=== PATIENT | male | born 1960 | race Caucasian/White ===

== ENCOUNTER 2024-01-07 04:58 | Inpatient (IN) | payer BC, SELFPAY ==
[2024-01-07] VITALS (91 sets, daily range): BP systolic 84–161; BP diastolic 68–109; BMI 28.7
--- NOTE | 2024-01-07 03:49 | ED.CVA ---
History of Present Illness
General
Chief Complaint: CVA/TIA Symptoms
Source: patient and ambulance crew
Exam Limitations: none
Time Seen by Provider: 01/07/24 03:46
Nursing documentation reviewed up to this point in time: agreed with
Onset of Stroke Symptoms
Onset of symptoms known: No
Time pt last seen normal is known: Yes
Date last time pt seen normal: 01/06/24
Time last time pt seen normal: 21:30
History of Present Illness
History of Present Illness:
This is a 63-year-old male who has no significant past medical history who was feeling well upon going to bed last night around 9:30 PM. He does admit to feeling mildly tired last night but otherwise was feeling well. He awoke at 3 AM with noted
moderate left facial droop as well as difficulty speaking. He describes his voice as being slurred and difficulty finding the right words/word searching. While getting ready for the ambulance, bending over to tie his shoes he admits to feeling
somewhat clumsy, difficulty tying his shoes but did not notice significant weakness on one side or the other. He denies headache, denies dizziness or lightheadedness.
He takes no medicines on a daily basis.
No fall.
Past History
Past History
ED Past Medical History: None
Social History
Tobacco: Non-smoker
Alcohol: None
Drug: None
Personal:
Living: with family
Employment: Employed
Family History
Family History: Hypertension (Both mother and father) and CAD (Father)
Phy Exam
Physical Exam
Physical Exam:
GENERAL: 63-year-old gentleman appears his stated age, awake and alert, pleasant, appears in no acute distress. Very mildly slurred speech is noted as well as minimal intermittent hesitation with his words but no definitive word searching.
EYE: pupils equal and reactive. Extraocular muscles intact. Anicteric
NECK: Supple, nontender, no meningismus, no significant adenopathy.
ENT: posterior pharynx is clear, oral mucosa is moist. TM clear b/l, nares patent. Mild to moderate left facial droop. Forehead is spared.
CARDIAC: Regular rate and rhythm. no murmur.
LUNGS: Clear breath sounds bilaterally, no acute respiratory distress, no wheezes/rales/rhonchi
ABDOMEN: Soft, nondistended, without focal tenderness, no r/g, no cvat. normoactive BS.
NEUROLOGICAL: Alert and oriented x3, left facial droop, mildly slurred speech. Motor strength 5/5 bilaterally. Gross sensation is intact.
SKIN: Warm and dry, normal color, skin intact. No rash.
MUSCULOSKELETAL: No C/C/E. peripheral pulses are full and equal b/l. No palpable tenderness.
PSYCH: Normal and appropriate interaction.
Scores
NIH Stroke Score
Level of Consciousness: 0 - Alert
LOC Questions: 0-Answers both correctly
LOC Commands: 0-Performs both correctly
Best Horizontal Gaze: 0-Normal
Visual Myers: 0=Normal, no visual loss
Facial Palsy: 2=Partial paralysis
Motor - Right Arm: 0=No drift 10 seconds
Motor - Left Arm: 0=No drift 10 seconds
Motor - Right Le-No drift 5 seconds
Motor - Left Le-No drift 5 seconds
Limb Ataxia: 0-Absent
Sensation: 0-Normal
Best Language: 0-No aphasia
Dysarthria: 1-Mild slurring
Extinction and Inattention: 0-No abnormality
Total Score:: 3
Thrombolytic Contraindication
Reasons for NON-Tx with Thrombolytics ABSOLUTE Exclusions: Greater than 4.5 hrs from onset of sxs
Course
Orders/Labs/Results
Orders:
Orders
01/07/24 03:48
Electrocardiogram (*1) Urgent
Reason for Study: Other
Other Reason for Exam: Possible Stroke
CT HEAD STROKE ALERT W/o Cont Urgent
Comment:
Reason For Exam: FACIAL DROOP
Bedside Glucose- Treatment ONCE
Cardiac Monitoring- Treatment ONCE
EKG- Treatment ONCE
IV Insert/Care/Rem.- Treatment PRN
Vital Signs As Directed
Frequency: Other
Weight As Directed
Frequency: Once
Comment: ZERO STRETCHER SCALE FOR ACCURATE WEIGHT
O2 Therapy [RESP] Urgent
Titrate/Wean O2 to maintain O2 sat greater than (%): 93
Special Instructions: MAINTAIN CONTINUOUS O2 SATS > OR = 93%
01/07/24 03:51
CT HEAD/NECK ANG STROKE ALERT Urgent
Comment:
Reason For Exam: wake up stroke-left facial droop, slurred speech
01/07/24 03:52
CT Brain Perfusion Urgent
Comment:
Reason For Exam: wake up stroke, left facial droop, slurred speech
Complete Blood Count/With Diff Urgent
Comprehensive Metabolic Panel Urgent
PTT Urgent
Prothrombin Time Urgent
Troponin I Urgent
01/07/24 04:25
Tenecteplase [Tnkase] 24 mg Syringe [Syringe Non-Pump] 0 ml IV NOW
Provider explained risk/benefits to patient &/or caregiver?: Yes
Abnormal Lab Results
01/07/24
03:52
Neutrophils % 34.3 L %
(42.2-75.2)
Lymphocytes % 52.6 H %
(20.5-51.1)
Monocytes % 10.2 H %
(1.7-9.3)
BUN 21 H mg/dl
(9-20)
Glucose 107 H mg/dl
(70-99)
01/07/24 03:52
01/07/24 03:52
Vital Signs
Initial and Last Documented VS:
Initial Vital Signs
Pulse BP
80 161/81
01/07/24 04:15 01/07/24 04:15
Last Documented Vital Signs
Pulse BP
80 161/81
01/07/24 04:15 01/07/24 04:15
MDM/Problems Addressed
Differential Diagnosis Includes:
Concern for acute CVA, wake-up stroke is patient awoke at 3 AM with symptoms. Went to bed at 9:30 PM feeling well.
Overall symptoms appear improved from initial waking but have not resolved. Initial NIH stroke scale of 3.
Will check CT of the head, CTA as well as CT perfusion.
As NIH stroke scale of 3, patient is not a candidate for IAT but potential candidate for TNK.
Blood pressure 160/80.
Stroke alert initiated promptly upon arrival to the ED.
Case discussed with neurology. Awaiting CT results.
*Radiology
Radiology exam reviewed: radiology read reviewed
*Pulse Oximetry
Patient hypoxic: no
*EKG
Interpreted by ED Provider?: Yes
Interpretation: normal
Comparison EKG: no comparison EKG present
Rate: normal
Rhythm: sinus
[place]: normal axis
Interval: normal interval
QRS Pattern: normal QRS
Ischemia: no ischemia
*Residential Solar Sales Consultant Interpretation
Rate: normal
Interpretation: normal
Rhythm: sinus
*Critical Care Note
Total Time (30-74mins, 75-104mins- exclusive of procedures): 30
comment:
Critical care statement: A total of 30 minutes of critical care time was provided for this patient. This includes management of unstable vital signs, evaluation of the patient at bedside, reviewing the patient's pertinent medical records, discussion
with consultants, review of old EKGs and review of pertinent medical records. This time with separate from time utilized to perform the aforementioned documented procedures
Update Note
Update Note:
01/07/[address] is read by radiologist including CT perfusion. CTA is negative. CT perfusion showing frontal lobe ischemia�acute nature. Patient is TNK candidate.
Benefits/risks discussed with patient and . Agreeable to TNK.
ED Attending Note
-
Portions of this chart may have been created with voice recognition software.� Occasional wrong word or��sound alike� substitutions may have occurred due to the inherent limitations of voice recognition software.
Discharge Plan
Departure
Patient Disposition: Admit
Date of Disposition: 01/07/24
Time of Disposition: 04:36
Admit to: ICU
Admit to doctor: Juana
Presentation/result/management discussed w/ accepting MD/DO: Hospitalist
Discharge Problem:
Acute ischemic stroke
Referrals:
Oh Chaudhari MD [Family Provider] -
Discharge Date and Time
Print Language: SLOVAK
[2024-01-07 04:06] LABS: % Basophils 0.7 % (0-2); % Immature Granulocytes 0.2 % (0-0.5); % Lymphocytes 52.6 % (20.5-51.1); % Monocytes 10.2 % (1.7-9.3); % Neutrophils 34.3 % (42.2-75.2); Absolute Eosinophils 0.1 10^3/uL (0-0.7); Absolute Lymphocytes 3.1 10^3/uL (1.2-3.4); Absolute Monocytes 0.6 10^3/uL (0.1-0.6); Hematocrit 43.7 % (39.0-52.0); Hemoglobin 14.9 g/dL (13.0-18.0); Mean Corp Hgb Conc. 34.1 g/dL (33.0-37.0); Mean Corpuscular Hgb 29.9 pg (27.0-31.0); Mean Corpuscular Volume 87.8 fL (80.0-94.0); Mean Platelet Volume 9.2 fL (7.4-10.4); Nucleated Red Blood Cells % 0 % (-); Platelet Count 224 10^3/uL (130-400); Red Blood Cell Count 4.98 10^6/uL (4.70-6.10); Red Cell Dist. Width 12.3 % (11.5-14.5); White Blood Cell Count 5.9 10^3/uL (4.8-10.8)
[2024-01-07 04:10] LABS: INR 0.92; PT 12.7 Sec (11.4-14.6)
[2024-01-07 04:11] LABS: APTT 28.5 Sec (23.4-35.0)
[2024-01-07 04:16] LABS: Glucose - Point of Care 94 mg/dl (70-99)
[2024-01-07 04:22] LABS: ALT (SGPT) 33 U/L (0-50); AST (SGOT) 49 U/L (17-59); Albumin 4.6 g/dl (3.5-5.0); Alkaline Phosphatase 40 U/L (38-126); Blood Urea Nitrogen 21 mg/dl (9-20); Calcium 9.4 mg/dl (8.4-10.2); Carbon Dioxide 25 mmol/L (22-30); Chloride 103 mmol/L (98-107); Glucose 107 mg/dl (70-99); Potassium 4.2 mmol/L (3.5-5.1); Sodium 142 mmol/L (135-145); Total Bilirubin 0.7 mg/dl (0.2-1.3); Total Protein 7.2 g/dl (6.3-8.2); eGFR > 60.00
[2024-01-07] MEDS: TNKASE 4.8 MG IV (04:31)
[2024-01-07 04:32] LABS: Troponin I < 0.012 ng/ml
--- NOTE | 2024-01-07 04:53 | HPS.HSE ---
Family Physician
-
Family Physician: Oh Chaudhari
Chief Complaint
-
Arose with slurred speech
History of Present Illness
This is a 63-year-old male without any known significant past medical history presenting to the hospital with slurred speech and numbness tingling on the left side.
Patient was in the state of health and went to bed feeling well at 9:30 PM. He had arose to use the bathroom at 3 AM and noticed that he was clumsy. He could not rinse his mouth normally and was gagging on the water. When he tried to speak he
word finding difficulty. His spouse noted that his speech was abnormal. She notes a small left-sided facial droop. He was able to walk without difficulty. He denied having any weakness in his upper or lower extremity. He reports fingertip
numbness. He also reported left leg numbness. On arrival in the emergency department he is speech difficulties had improved dramatically. However he still had numbness.
Denies any prior history or for neurological symptoms including possible TIA, syncope or seizures. He denies any history of palpitations lightheadedness or dizziness. He reports family history of CAD in father but otherwise negative.
On in the ED the patient was hypertensive with a blood pressure of 160/80 pulse of 85 and satting at 7% on room air. ECG showed normal normal sinus rhythm at rate of [address] or T wave changes. CBC was unremarkable. Chemistries
BUN/creatinine were also unremarkable. Patient had a CT of the head and a CTA which where read as negative for bleed, thrombosis, dissection or severe stenosis. CT perfusion imaging read by neurologist shows acute stroke and patient received a TNK.
Medical History
Past Medical History
Past Medical History: Reports None
Past Surgical History: Reports Orthopedic (bilateral meniscus surgery)
Social History
Tobacco: Non-smoker
Alcohol: None
Drug: None
Personal:
Living: With Family
Employment: Employed
Family History
Family History: Not pertinent
Allergies / Home Medications
Allergies reflects when Allergies were last updated in [facility].
Home Medications with original date entered in [facility]
Allergy/Medication List:
Allergies
Allergy/AdvReac Type Severity Reaction Status Date / Time
No Known Allergies Allergy Unverified 01/07/24 04:16
NONE
Review of Systems
-
History Source: Patient and Family
Constitutional: Reports No Symptoms
EENT: Reports No Symptoms
Respiratory: Reports No Symptoms
: Reports No Symptoms
Musculoskeletal: Reports No Symptoms
Skin: Reports No Symptoms
Neurological: Reports Numbness and Other (slurred speech)
Endocrine: Reports No Symptoms
Hematologic/Lymphatic: Reports No Symptoms
Psych: Reports No Symptoms
Physical Exam
Vital Signs
Vital Signs
Temp Pulse Resp BP Pulse Ox
97.9 F 76 16 132/86 97
01/07/24 04:23 01/07/24 04:33 01/07/24 04:33 01/07/24 04:33 01/07/24 04:23
Physical Exam
General: Well Developed, Well Nourished, No Apparent Distress and Comfortable
HEENT: NormoCephalic, Anicteric, Moist mucous membranes and Atraumatic
Respiratory: Clear
Cardiac: S1/S2 and Regular Rhythm
Breast: Deferred by me
GI: Soft, Non Tender, Non Distended and Normal Bowel Sounds
Rectal: Deferred by Provider
Genito-urinary: Deferred by me
Musculoskeletal: No Clubbing, No Cyanosis and No Edema
Skin: Warm
Neuro: AO x 3, Cranial Nerves Intact, No Sensory Deficits (mild numbness of right hand/finger tips and R foot) and Other (NIHSS = 2)
Hematologic/Lymphatic: No Lymphadenopathy
Psych: Calm
Laboratory Results
-
01/07/24 03:52
01/07/24 03:52
Laboratory Results
PT 12.7 Sec (11.4-14.6) 01/07/24 03:52
INR 0.92 01/07/24 03:52
APTT 28.5 Sec (23.4-35.0) 01/07/24 03:52
Total Bilirubin 0.7 mg/dl (0.2-1.3) 01/07/24 03:52
AST 49 U/L (17-59) 01/07/24 03:52
ALT 33 U/L (0-50) 01/07/24 03:52
Alkaline Phosphatase 40 U/L (38-126) 01/07/24 03:52
Troponin I < 0.012 ng/ml 01/07/24 03:52
Data Reviewed
-
Ultrasound: Discussed with Physician
Medical Tests (Nuc Med, Echo, EKG etc): Image Personally Visualized and interpreted
Lab Data: Labs Reviewed by me
Old Records: Reviewed
Impression/Plan
-
IMPRESSION:
63-year-old male without known past medical history presents to the emergency department with left facial droop slurred speech and word finding difficulties that was first noticed after waking up at 3 AM. He went to bed feeling normal at 9:30 PM.
NIH stroke score on arrival was 3. CT head and CT angio negative for bleed, dissection or critical stenosis. CT perfusion shows acute stroke and patient received TNK. Currently NIHSS equals 2.
PLAN:
1. CVA s/p TNK
- admit to icu
- no AC/ antiplatelet therapy for now
- speech swallow eval
- IV hydralazine to Keep SBP < 180 but otherwise permissive hypertension
- mri brain, echo in am
- check a1c, lipid profile, esr in am
- neurochecks q 4
- neurology consulted
Code Status - Full Code
--- NOTE | 2024-01-07 05:30 | PTCARENOTE ---
Received pt from ED nurse via bed. NIHSS performed at bedside w/ ED nurse. NIHSS-1 for mild slurring of words. Yamileth coma scale score 15. Pt presents A&Ox3, pupils are equal and reactive to light, and can move all 4 extremities. Pt can also make
needs known. Pt is NSR on tele monitor, has no edema, and +pedal pulses. Pt on RA satting at 97% pulse ox. On auscultation pt lungs sound clear. Pt's abdomen is round w/ active BS. Pt voiding yellow urine in urinal. Pt's skin is C/D/I. Pt denies any
pain.
--- NOTE | 2024-01-07 06:45 | PTCARENOTE ---
Upon reassessment, neuro status unchanged. NIHSS performed w/ ramone RN and was unchanged. NIHSS-1 for mild slurring.
[2024-01-07 07:05] LABS: HDL Cholesterol 58 mg/dl; LDL Cholesterol, Calculated 149 mg/dl; Total Cholesterol 231 mg/dl (50-199); Triglyceride 121 mg/dl (10-149); Very Low Density Lipoprotein 24 mg/dl (0-30)
--- NOTE | 2024-01-07 07:09 | CON.INTV ---
Consultation
Consultation Request
Date/Time Consultation Requested: 01/07/24
Date/Time Consultation Performed: 01/07/24
Performing Provider: Jeremias
Reason for Consultation: CVA
Medical History
-
History of Present Illness:
Patient is a 63-year-old male with no past history presenting to ER w/ slurred speech and numbness tingling on the left side. Patient was in the state of health and went to bed feeling well at 9:30 PM. He had arose to use the bathroom at 3 AM
and noticed that he was clumsy. He could not rinse his mouth normally and was gagging on the water. When he tried to speak he word finding difficulty. Spouse noted small left-sided facial droop. He was able to walk without difficulty. He denied
having any weakness in his upper or lower extremity. Denies any prior history or for neurological symptoms including possible TIA, syncope or seizures.
On in the ED the patient was hypertensive with a blood pressure of 160/80 pulse of 85 and satting at 7% on room air. ECG showed normal normal sinus rhythm at rate of [address] or T wave changes. NIH score of 3. Prelim read of imaging
negative, but CT perfusion imaging read by neurologist shows acute stroke. Patient received TNK.
Past Medical History
Past Medical History: Other (see list below)
Social History
Tobacco: Non-smoker
Alcohol: None
Drug: None
Family History
Family History: Reviewed & Not Pertinent
Allergies / Home Medications
Allergies
Allergy/AdvReac Type Severity Reaction Status Date / Time
No Known Allergies Allergy Unverified 01/07/24 04:16
Review of Systems
-
History Source: Patient
All other systems: Negative unless noted
Vitals / Labs / Diagnostic Testing
Vital Signs
Temp Pulse Resp BP Pulse Ox
98.2 F 78 20 141/75 95
01/07/24 05:51 01/07/24 06:45 01/07/24 06:45 01/07/24 06:45 01/07/24 06:45
Lab Data
01/07/24 06:00
01/07/24 06:00
Laboratory Results
01/07/24 01/07/24
03:52 06:00
PT 12.7 Cancelled
INR 0.92 Cancelled
APTT 28.5 Cancelled
Diagnostic Testing:
Physical Exam
-
HEENT: Normocephalic, Anicteric and Moist Mucous Membranes
Cardiovascular: S1/S2 and Regular Rhythm
Respiratory: Clear and Non-Labored Respirations
GI: Soft, Non Distended and Non Tender
Neurology: Awake, Alert, Oriented and No Motor Deficits
Skin: Warm, Dry and Good Color
General: Comfortable and Other (NAD)
Assessment
-
Patient is a 63-year-old male with no past history presenting to ER w/ slurred speech and numbness tingling on the left side. On in the ED the patient was hypertensive with a blood pressure of 160/80 pulse of 85 and satting at 7% on room air.
ECG showed normal normal sinus rhythm at rate of [address] or T wave changes. NIH score of 3. Prelim read of imaging negative, but CT perfusion imaging read by neurologist shows acute stroke. Patient received TNK.
Acute CVA s/p TNK 01/07/24
Slurred speech
Conditions present MANAGER OF CASE
Knee Replacement
Torn meniscus x 2 s/p 2 arthroscopies
GERD s/p EGD 2012
HLD
Plan
S/p TNK for CVA
Observe overnight following administration, careful watch for signs of bleeding
Follow CBC, neurovascular checks
Neuro eval
Repeat MRI today
Prior cardiac history includes--mild HLD
No history of HTN
No prior h/o lung disease, currently stable on RA
Aspiration precautions
CXR reviewed, no acute findings
Restart diet per protocol
Speech eval
GI ppx if indicated
Creat at baseline, follow UO
Follow daily weights
No history of renal disease
No signs/symptoms suspicious for infectious etiology at this time.
Will observe off antibiotics for now.
DVT ppx held, SCDs
If doing well post MRI, can transfer to [place] [facility] 24 hours of TNK.
Diagnostic Data
Chest X-Ray: 01/07/24-no acute process
CT Scan: Head/H&N/perfusion 01/07/24-no hemorrhage hydrocephalus or herniation, no large vessel occlusion or high-grade stenosis, nondiagnostic
AP 06/23/13- 1. No CT abnormalities identified to explain the patient's symptoms.
2. Degenerative changes at L4 -- 5, producing moderate narrowing of the central canal and left neural foramen.
Echo:
PFT's:
Reports and relevant images were personally reviewed.
-----
Critical care time 75 mins -- this includes review of history, physical exam, medications, hemodynamic/ventilator parameters, laboratory data, imaging and discussion with house staff, pharmacy, respiratory therapy, armored machine operator, and nursing. Prolonged
time reviewing case presentation by resident (See other note).
--- NOTE | 2024-01-07 07:16 | PTCARENOTE ---
pt received from previous rn at bedside- completed nih with offgoing rn- nih 1 for mild slurring. aox3, nsr on monitor, on room air. no complaints at this time. pt educated about plan of care and stroke education provided- verbalized understanding.
ivs c/d/i. all safety precautions in place, call ruelas within reach.
[2024-01-07 07:43] LABS: Erythrocyte Sed Rate 11 mm/hour (0-20)
--- NOTE | 2024-01-07 08:21 | CON.NEURO ---
Neuro Assessment/Plan
Assessment
Abrupt onset of left facial weakness and difficulty with speech as well as apraxia of right hand use
CT perfusion study of the head is suggestive of an acute right frontal ischemic stroke
Plan
check MRI of brain as planned or earlier
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
At 24 hours, start aspirin 81 mg and clopidogrel 75 mg, then at day 21, aspirin alone
start Atorvastatin 80 mg due to LDL elevation
6 weeks after onset of symptoms, patient will require hypercoagulable evaluation especially in light of the patient's father's early myocardial infarction
Provide medical educational materials
Goal of normotension 24 hours after onset of symptoms
Goal of normoglycemia
DVT prophylaxis
Will follow peripherally
Consultation
Order
Date of Consultation: 01/07/24
Requesting Provider: Hospitalists
Reason for Consult: Aphasia
Subjective/Objective
Subjective Data
Date of Service: January 07, 2024
Right handed
Patient wanted in his usual state of medical health until from sleep at 0300 at which time he noticed that he had difficulty with a left facial droop at which time water was falling out of his mouth. Subsequently, the patient spoke to his and
was found to have difficulty with speaking and slurred speech as well as word searching. The patient then presented to this [facility]'s emergency department at which time tenecteplase was provided. Since his presentation, the patient reports having
improvement in his speech however he continues to experience mild hesitancy.
No prior similar events. No known modifying factors. Additionally, the patient did experience at the time of onset right hand apraxia when attempting to tie shoes.
Objective Data
Vital Signs
Temp Pulse Resp BP Pulse Ox
36.8 C 69 20 129/73 95
01/07/24 07:14 01/07/24 08:03 01/07/24 08:03 01/07/24 08:03 01/07/24 08:00
Lab Results
01/07/24 06:00
01/07/24 06:00
PT Cancelled 01/07/24 06:00
INR Cancelled 01/07/24 06:00
APTT Cancelled 01/07/24 06:00
Sodium Cancelled 01/07/24 06:00
Potassium Cancelled 01/07/24 06:00
BUN Cancelled 01/07/24 06:00
Glucose Cancelled 01/07/24 06:00
Calcium Cancelled 01/07/24 06:00
LDL Cholesterol, Calc Cancelled 01/07/24 06:00
Patient Allergies
No Known Allergies Allergy (Unverified 01/07/24 04:16)
CVA Assessment
Onset of Stroke Symptoms
Onset of symptoms known: Yes
Date of onset of symptoms: 01/07/24
Time of onset of symptoms: 03:00
Time pt last seen normal is known: Yes
Date last time pt seen normal: 01/06/24
Time last time pt seen normal: 21:30
NIH Stroke Score
Level of Consciousness: 0 - Alert
LOC Questions: 0-Answers both correctly
LOC Commands: 0-Performs both correctly
Best Horizontal Gaze: 0-Normal
Visual Myers: 0=Normal, no visual loss
Facial Palsy: 0=Normal, symmetrical
Motor - Right Arm: 0=No drift 10 seconds
Motor - Left Arm: 0=No drift 10 seconds
Motor - Right Le-No drift 5 seconds
Motor - Left Le-No drift 5 seconds
Limb Ataxia: 0-Absent
Sensation: 0-Normal
Best Language: 0-No aphasia
Dysarthria: 0-Normal
Extinction and Inattention: 0-No abnormality
Total Score:: 0
Tenecteplase Contraindications
Inclusion and Exclusion criteria reviewed: Yes
IAT Contraindications: NIHSS < 6
Review of Systems
-
History Source: Patient
All other systems: Reviewed and negative
EENT: Negative Blurry Vision or Swallowing Difficulty
Respiratory: Negative Trouble Breathing
Cardiac: Negative Chest Pain
Abdomen/GI: Negative Incontinence of Stool
Genitourinary: Negative Difficulty Voiding
Musculoskeletal: Negative Back Pain or Neck Pain
Neuro: Headache (AM headaches 2x/week); Negative Dizzy
Physical Exam
-
General: No Apparent Distress and Appears Stated Age
Eyes: OU Absent Papilledema, Round OU, [place] Conjunctivae and No Ptosis
HEENT: Anicteric and Moist Mucous Membranes
Neck: Full Range of Motion
Respiratory: No Dyspnea
Cardiac: No JVD
GI: Non-distended
Skin: Unremarkable
Extremities: No Clubbing, No Cyanosis and No Edema
Psych: Intact Judgement/Insight
Extended Neurological Exam
Mood & Affect: Mood Unremarkable and Affect Unremarkable
Attention Span & Concentration: Awake, Alert, Interactive and No Difficulty with 2 Step Request
Memory: Unremarkable
Tremor: Hand Tremor Absent and Head Tremor Absent
Speech: Quality Unremarkable and Quantity Unremarkable
Cranial Nerve II: Left Eye: Pupillary Reactivity Unremarkable, Pupillary Size Unremarkable and Visual Myers Intact
Cranial Nerve II: Right Eye: Pupillary Reactivity Unremarkable, Pupillary Size Unremarkable and Visual Myers Intact
Cranial Nerves III, IV, : Extraocular Movement: Extraocular Movement Full in all Directions
Cranial Nerve VII: Facial Symmetry: Normal Facial Symmetry
Cranial Nerve VIII: Hearing: Unremarkable Hearing to Normal Conversational Volume
Cranial Nerves IX, X: Palate Movement: Palate Elevation Symmetric
Cranial Nerve XI: Shoulder Shrug: Unremarkable
Cranial Nerve XII: Tongue Protusion: Midline
Muscle Strength, Overall: Full Throughout
Muscle Bulk & Tone: Bulk Unremarkable and Tone Unremarkable
Pronator Drift: No Drift in Upper Extremities
Deep Tendon Reflexes: Unremarkable Throughout
Touch Sensation: Unremarkable
Coordination: Hayayo-fakg-crigna Testing Unremarkable
Babinski Sign: Absent Bilaterally
Data Reviewed
-
CT-A: Report Reviewed and Image Reviewed
CT-Perfusion: Report Reviewed and Image Reviewed
CT Head: Report Reviewed
MRI Head: Ordered and Pending
Labs: Report Reviewed
Lipid Profile: Report Reviewed
Reviewed with: Physician and Patient
Old Records: Summarized
Medications
-
Active Medications
Generic Name Dose Route Start Last Admin
Trade Name Freq PRN Reason Stop Dose Admin
Acetaminophen 650 mg 01/07/24 05:33
Acetaminophen 325 Mg Tablet PO 02/04/24 05:32
Q4HPRN PRN
MALONEY, mild pain, or temp >100.4F
Atorvastatin Calcium 80 mg 01/07/24 18:00
Atorvastatin (Lipitor) 80 Mg Tablet PO 02/04/24 17:59
QPM SAWYER
Hydralazine HCl 5 mg 01/07/24 05:33
Hydralazine 20 Mg/Ml Vial IV 02/04/24 05:32
Q4HPRN PRN
BP > 180/105 mmHg
Sodium Chloride 0 flush 01/07/24 06:00
Sodium Chloride 0.9% (Flush) Syringe IV 02/04/24 05:59
PER PROTOCOL SAWYER
Past History
Past History
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
ED Past Surgical History: None
Social History
Tobacco: Non-smoker
Alcohol: None
Drug: None
Personal:
Living: with family
Employment: Employed
Family History
Family History: Hypertension (Both mother and father) and CAD (Father)
[2024-01-07 09:11] LABS: Glycohemoglobin (HgbA1c) 5.5 % (4.0-5.6)
--- NOTE | 2024-01-07 09:17 | PTCARENOTE ---
Discussed plan of care with Dr. Quevedo- pt ok to get oob, and ok to go to mri today. pt oob to bathroom without difficulty. assessment unchanged.
--- NOTE | 2024-01-07 09:26 | W.PN.HOSP.TC ---
Today's Communication/Plan
-
Cardiology consult
Monitor in ICU
Assessment / Plan
Assessment / Plan
Gen-AAOx3, NAD
HEENT-NC, AT, anicteric, clear oral mm
Neck-supple
CV-reg, no M, +S1/S2
Lungs-clear B/L
Abd-soft, NT, ND
Ext-no edema
Musculoskeletal-no cyanosis, clubbing
Skin-warm and dry
Neuro-grossly non-focal
Psych-calm, cooperative
Acute stroke -presentation with left facial droop, dysarthria and word finding difficulties. Symptoms started at 3 AM. Tenecteplase administered in the ER, currently in ICU. Neurology consulted.
CT head without contrast negative for acute disease.
CTA head/neck without large vessel occlusion, stenosis or dissection.
Brain MRI tomorrow. Echocardiogram.
Consult cardiology for Linq device placement. Discussed with neurology.
Neurology plans on starting dual antiplatelet therapy in 24 hours.
Patient on no medications prior to admission. Was told his blood pressure, cholesterol numbers were elevated by PCP in the past. Prediabetes. Does not regularly check blood pressure at home.
LDL 149, HDL 58, total cholesterol 231, triglycerides 121.
Essential hypertension -permissive hypertension for 24 hours.
Full code
Anticipated Discharge: 24 - 48 hours
Subjective/Interval History
-
Date of Service: January 07, 2024
Patient seen and examined. No complaints currently.
Objective Data
-
Labs:
Laboratory Results
01/07/24 01/07/24
03:52 06:00
WBC 5.9 Cancelled
Hgb 14.9 Cancelled
Hct 43.7 Cancelled
Plt Count 224 Cancelled
PT 12.7 Cancelled
INR 0.92 Cancelled
APTT 28.5 Cancelled
Sodium 142 Cancelled
Potassium 4.2 Cancelled
Chloride 103 Cancelled
Carbon Dioxide 25 Cancelled
BUN 21 H Cancelled
Creatinine 0.9 Cancelled
Glucose 107 H Cancelled
Calcium 9.4 Cancelled
Total Bilirubin 0.7
AST 49
ALT 33
Alkaline Phosphatase 40
Vital Signs:
Vital Signs
Temp Pulse Resp BP Pulse Ox
98.2 F 75 20 159/96 95
01/07/24 07:14 01/07/24 09:03 01/07/24 09:03 01/07/24 09:03 01/07/24 08:00
I&O
01/06/24 01/07/24 01/08/24
06:59 06:59 06:59
Output Total 400 / 400
Balance -400 / -400
Review of Systems
-
History Source: Patient
All other systems: Reviewed and negative
[2024-01-07] MEDS: ATIVAN 1 MG PO (10:19)
--- NOTE | 2024-01-07 10:34 | PTCARENOTE ---
stroke packet and education provided to patient- pt able to teach back and verbalized understanding to education.
--- NOTE | 2024-01-07 10:44 | CON.CAR ---
Addendum entered and electronically signed by Kelly Lazar MD 01/07/24 15:41:
I saw and examined the patient.
The Health Information Management Director's note was reviewed and I agree with the note.
Comment: Exam stable with regular rate and rhythm no obvious murmurs. Lungs clear. Alert and appropriate.
CVA treated with TNK. Doing well. He feels back to baseline.
Plan for transesophageal echocardiogram tomorrow discussed at length with patient.
Plan for 2-week rhythm*monitor prior to discharge.
If this is negative would immediately proceed with implantable Linq.
Aggressive risk factor modification.
All questions answered.
Original Note:
Consultation
Consultation Request
Date/Time Consultation Performed: 01/07/24
Requesting Provider: Dr. Cruz
Performing Provider: Massiel Owens PA-C for Dr. Kelly Lazar
Reason for Consultation: SALLIE/monitor
Medical History
-
Chief Complaint: CVA symptoms
History of Present Illness:
Patient is a 63-year-old male without significant past medical history who presented to [facility] with stroke symptoms early this morning. He had felt in his normal state of health upon going to bed last night around 9:30 PM. Around 3:00
this morning he woke up with left facial drooping and slurred speech, with word finding abnormality. He reports he tried to drink some water and choked on it. He also had some difficulty attempting to tie his shoes while waiting for the ambulance.
He denies cardiac history. He reports normally he walks his dogs daily without difficulty. He denies recent chest pain, shortness of breath, palpitations, lightheadedness or dizziness. He is for brain MRI and echocardiogram today. Cardiology
consulted to evaluate patient for SALLIE and cardiac monitoring. He did receive TNK with significant improvement/resolution of symptoms.
PMH:
meniscus surgery
FH of CAD
Past Medical History
Past Medical History: Other (in HPI)
Social History
Tobacco: Non-Smoker
Alcohol: None
Personal:
Living: With Family
Employment: Employed
Family History
Family History: CAD (in father)
Allergies / Home Medications
Allergy/AdvReac Type Severity Reaction Status Date / Time
No Known Allergies Allergy Unverified 01/07/24 04:16
Review of Systems
-
History Source: Patient and Family
All other systems: Negative unless noted
Physical Exam
Vital Signs
Temp Pulse Resp BP Pulse Ox
98.2 F 78 20 140/75 93
01/07/24 07:14 01/07/24 10:33 01/07/24 10:33 01/07/24 10:33 01/07/24 10:00
Lab Results
01/07/24 06:00
01/07/24 06:00
Troponin I < 0.012 ng/ml 01/07/24 03:52
Physical Exam
General: No Apparent Distress and Comfortable
HEENT: Normocephalic, Anicteric and Moist Mucous Membranes
Respiratory: Clear and Non Labored Respirations
Cardiac: S1/S2 and Regular Rhythm
GI: Soft, Non Tender, Non Distended and Normal Bowel Sounds
Musculoskeletal: No Clubbing, No Cyanosis and No Edema
Skin: Warm and Dry
Neuro: AO x 3
Impression / Plan
-
Primary Eyeglass Frame Truer: none prior to admission
Assessment:
Presentation with facial droop, slurred speech
Concern for acute CVA s/p TNK 01/07/24
HTN
HLD
meniscus surgery
FH of CAD
ECHO 01/07/24: pending
Plan:
-Patient presented with symptoms concerning for acute stroke. Status post TNK. Head CT with no acute intracranial abnormality. Brain MRI pending. Neurology following
-For aspirin and Plavix when okay per neurology. hgb 14.9
-In sinus rhythm on review of telemetry, continue to follow
-Echocardiogram pending
-LDL 149. High intensity Lipitor started
-Troponin negative
-follow BP trends. allow permissive HTN for now in setting of presumed CVA
-N.p.o. for SALLIE in a.m. Procedure discussed with patient and at bedside and they are agreeable to proceed
-Will plan for a 4-week rhythm star monitor to be placed tomorrow, and can determine need for linq based on results.
-d/w head bucker
Data Reviewed
-
EKG: Tracing Personally Visualized and interpreted
CT Scan: Report Reviewed by me
Labs: Labs Reviewed by me
Old Records: Reviewed
--- NOTE | 2024-01-07 11:07 | PTCARENOTE ---
pt off floor for mri
--- NOTE | 2024-01-07 11:38 | CM ---
CM following re: discharge planning.
Discussed in Rounds, reviewed pt's chart, met with pt and pt's spouse at bedside.
Pt is a 63 year old male, admitted with primary dx of CVA. Per Rounds meeting, MRI today, PT/OT/ST to evaluate, continue supportive care.
Pt reports he lives with spouse 2SH, 2 steps to enter, has supportive daughter. 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 Pt expressed his desire to return back home at discharge.
PT and OT will evaluate the pt to determine a level of care at discharge.
PCP: Oh Chaudhari
Pharmacy: [facility]
D/C plan: home with anticipated no needs. Spouse to transport at discharge.
CM will follow with discharge plan updates as hospitalization progresses
--- NOTE | 2024-01-07 12:14 | PTCARENOTE ---
pt back from mri at 1150- vitals obtained. assessment unchanged. pt oob to bathroom. no complaints at this time.
--- NOTE | 2024-01-07 13:11 | W.PN.INTV ---
Today's Communication / Plan
Recommendations
*SEE PLAN ABOVE
Assessment
-
ASSESSMENT:
63 yo previously healthy Male with no significant PMHx or PSHx who presented to the ED today (2023), after awakening from sleep with Left-Facial Droop, mild dysarthria and associated numbness and mild weakness of the ipsilateral UE, around
3AM this morning;
Due to RIGHT-Frontal / Sourav-Medial Sub-Acute Ischemic Infarct/TIA, per Brain MRI.
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
Knee Replacement
Torn meniscus x 2 s/p 2 arthroscopies
GERD s/p EGD 2012
HLD
PLAN:
NEURO:
Closely Monitor over next 24hr period following Thrombolytic (Tenecteplase) Administration
Neuro-Vasc Checks Q1hr
Continue close pt monitoring
Cont. to F/U ancillary tests and correlate clinically with current pt condition
RESPI:
Continue to follow Aspiration Precautions
Elevate head of the Bed > 35 Degree Angle
Possible Speech Eval (Swallowing-Test)
CARDIO-VASC:
Cardiology on Board Cont. to follow Recommendations
Continue Full Cardia Work-up / SALLIE Tomorrow
Continue Selq-Nlwy-LKM Therapy (ASA 81mg + Clopidogrel 75mg QD)(Per Protocol)
Continue High-Dose Atorvastatin 80mg QD (Plaque Stabilizing Effect in the setting of Unknown CVA Etiology/Possible Thrombotic Etiology)
F/U Out-Patient for further management and characterization of possible
-Stroke Precipitating Factors
-Hypertensive Urgency Causes
GI:
Restart Regular-Diet (Per Protocol / Following Primary Teams - Recommendations)
GI Ppx (In the Setting of Prev. GERD Hx and/or PPI Use)
RENAL/:
F/U Urine Output
Cont. to follow Creat
Cont. to follow In/Outs
Continue IV Fluid Hydration & Supportive-Care
ID:
No ABX Ppx at this time
Cont. to Monitor for Signs of Infection Development (Temp/
HEMME/ONC:
DVT Pppx With SCD at this time
NO Anti-Coagulation at this time (Currently on Thrombolytic Agent)
ENDOCRINE:
Closely Monitor Glucose Level
F/U Out-pt for further management/Optimization
-----
Critical care time mins -- this includes review of history, physical exam, medications, hemodynamic/ventilator parameters, laboratory data, imaging and discussion with house staff, pharmacy, respiratory therapy, digital sales planner, and nursing.
Subjective Dataa
Subjective Data
Date of Service:
Date of Service: January 07, 2024
Pt was seen and evaluated at the bedside with attending physician.
No complains
Pt stated he feels well and consider his symptoms as completely resolved at this time
Pt was noted to be calm in NAD / AAOx3 / Cooperative
Vitals Stable / No hemodynamically instability
No Sensory or Motor Deficits or Abnormalities noted on Exam
Normal Speech
Pt understand next steps to follow in his plan of care and seems to fully agree
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
Review of Systems
General: Other
Objective Data
Data Reviewed
Vital Signs / I&O / Oxygen:
Vital Signs
Temp Pulse Resp BP Pulse Ox
36.7 C 68 18 118/76 93
01/07/24 12:06 01/07/24 12:33 01/07/24 12:33 01/07/24 12:33 01/07/24 12:00
Intake and Output
01/06/24 01/07/24 01/08/24
06:59 06:59 06:59
Output Total 400 / 400
Balance -400 / -400
SaO2 93
Labs/Micro/Reports
Lab Data
01/07/24 06:00
01/07/24 06:00
Laboratory Results
01/07/24 01/07/24
03:52 06:00
PT 12.7 Cancelled
INR 0.92 Cancelled
APTT 28.5 Cancelled
--- NOTE | 2024-01-07 15:13 | PTOTSP ---
ST Acute Care Evaluation
Pt currently presents with speech, language, and cognitive linguistic skills that are WFL. No skilled ETHYLBENZENE CONVERTER OPERATOR services deemed warranted at this time. Pt expressed occasional difficulty with adequate breath support for speaking at times (even prior to
arrival). ETHYLBENZENE CONVERTER OPERATOR recommended consideration for brief OP ETHYLBENZENE CONVERTER OPERATOR consultation for voice therapy to learn strategies to improve breath support for speech. Pt was receptive to this idea.
Recommendations:
- No skilled ETHYLBENZENE CONVERTER OPERATOR services warranted at this time.
- Consider OP ETHYLBENZENE CONVERTER OPERATOR tx for voice eval/tx if pt desires.
--- NOTE | 2024-01-07 16:15 | PTCARENOTE ---
assessment unchanged. dysarthria improved. pt resting comfortably at this time.
[2024-01-07] MEDS: LIPITOR 80 MG PO (18:09)
--- NOTE | 2024-01-07 19:14 | PTCARENOTE ---
Received pt via handoff. Pt AAOx3, NIH stroke scale completed at bedside with a score of 0, able to FRANCO. NSR, no edema with palpable pulses. 98% on RA, lungs sounds clear throughout. Hypoactive bowel sounds in all 4Q. Pt able to walk to bathroom to
void. Skin CDI. Call ruelas at bedside.
--- NOTE | 2024-01-07 23:41 | PTCARENOTE ---
All systems reassessed, pts NIH score remains a zero, call ruelas at bedside.
[2024-01-08] VITALS (28 sets, daily range): BP systolic 106–133; BP diastolic 67–86; PULSE 58–60; BMI 28.5
[2024-01-08 04:52] LABS: Hematocrit 40.7 % (39.0-52.0); Hemoglobin 14.1 g/dL (13.0-18.0); Mean Corp Hgb Conc. 34.6 g/dL (33.0-37.0); Mean Corpuscular Hgb 30.5 pg (27.0-31.0); Mean Corpuscular Volume 87.9 fL (80.0-94.0); Platelet Count 200 10^3/uL (130-400); Red Blood Cell Count 4.63 10^6/uL (4.70-6.10); Red Cell Dist. Width 12.3 % (11.5-14.5); White Blood Cell Count 4.7 10^3/uL (4.8-10.8)
[2024-01-08 05:00] LABS: Blood Urea Nitrogen 17 mg/dl (9-20); Calcium 9.1 mg/dl (8.4-10.2); Carbon Dioxide 26 mmol/L (22-30); Chloride 102 mmol/L (98-107); Estimated Creatinine Clearance 101 ml/min; Glucose 104 mg/dl (70-99); Magnesium 1.9 mg/dl (1.6-2.3); Potassium 3.8 mmol/L (3.5-5.1); Sodium 140 mmol/L (135-145); eGFR > 60.00
--- NOTE | 2024-01-08 05:04 | DOWNTIME ---
There was a [employer] Client Early Breastfeeding Care Specialist Downtime on 01/08/2024 from 0100 to 01/08/2024 at 0350. Downtime documentation of patient's care, including medication administrations, has been reconciled in the electronic record per guidelines. Refer to the
patient's paper chart under the miscellaneous tab to see printed paper medication records and downtime forms.
--- NOTE | 2024-01-08 05:11 | PTCARENOTE ---
All systems reassessed, pt NIH score remains at 0. Call ruelas at bedside.
--- NOTE | 2024-01-08 07:11 | W.PN.INTV ---
Today's Communication / Plan
Recommendations
Doing well today, MRI reviewed
Underwent SALLIE with PFO, further OP cardiac management
At risk for BLANK, will arrange sleep study f/u as OP
Discharge planning per team
Assessment
-
Patient is a 63-year-old male with no past history presenting to ER w/ slurred speech and numbness tingling on the left side. On in the ED the patient was hypertensive with a blood pressure of 160/80 pulse of 85 and satting at 7% on room air.
ECG showed normal normal sinus rhythm at rate of [address] or T wave changes. NIH score of 3. Prelim read of imaging negative, but CT perfusion imaging read by neurologist shows acute stroke. Patient received TNK.
Acute CVA s/p TNK 01/07/24
Slurred speech
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
Knee Replacement
Torn meniscus x 2 s/p 2 arthroscopies
GERD s/p EGD 2012
HLD
Plan
S/p TNK for CVA
Observe overnight following administration, careful watch for signs of bleeding
Follow CBC, neurovascular checks
Neuro eval
Repeat MRI reviewed below
Prior cardiac history includes--mild HLD
No history of HTN
Follow BP goals
For SALLIE today-PFO noted, will be obtaining OP holter monitoring
Cards OP FU
No prior h/o lung disease, currently stable on RA
Aspiration precautions
CXR reviewed, no acute findings
Likely has sleep apnea, will arrange sleep study testing for patient as OP
Restart diet per protocol, tolerating
Speech eval
GI ppx if indicated
Creat at baseline, follow UO
Follow daily weights
No history of renal disease
No signs/symptoms suspicious for infectious etiology at this time.
Will observe off antibiotics for now.
DVT ppx held, SCDs
Diagnostic Data
Chest X-Ray: 01/07/24-no acute process
CT Scan: Head/H&N/perfusion 01/07/24-no hemorrhage hydrocephalus or herniation, no large vessel occlusion or high-grade stenosis, nondiagnostic
AP 06/23/13- 1. No CT abnormalities identified to explain the patient's symptoms.
2. Degenerative changes at L4 -- 5, producing moderate narrowing of the central canal and left neural foramen.
Brain MRI 01/08/24- As described, there are several focal areas of acute to subacute infarction in the right frontal lobe. No evidence for associated hemorrhage. No evidence of mass effect or midline shift. Mild atrophy. Mild T2 and FLAIR white
matter hyperintensities, commonly seen with aging and usually attributed to small vessel ischemic disease. Paranasal sinus disease as described.
Echo: 01/07/24- 1. Normal left ventricular size and systolic function without regional wall motion abnormalities. Mild concentric left ventricular hypertrophy. Estimated left ventricular ejection fraction is 59% by Short's method. Normal
diastolic function. 2. Normal right ventricular size and systolic function. 3. No significant valvular abnormalities. 4. No pericardial effusion. 5. Mild dilatation of the ascending aorta. No prior echocardiogram available for comparison.
PFT's:
Reports and relevant images were personally reviewed.
-----
Critical care time 45 mins -- this includes review of history, physical exam, medications, hemodynamic/ventilator parameters, laboratory data, imaging and discussion with house staff, pharmacy, respiratory therapy, shipping helper, and nursing. Prolonged
time reviewing case presentation by resident (See other note).
Subjective Dataa
Subjective Data
Date of Service:
Date of Service: January 08, 2024
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
Subjective:
No acute events ON, remains stable on RA
No new complaints
Ready to go home
Objective Data
Data Reviewed
Vital Signs / I&O / Oxygen:
Vital Signs
Temp Pulse Resp BP Pulse Ox
98.6 F 67 18 118/74 89
01/08/24 03:45 01/08/24 06:00 01/08/24 04:33 01/08/24 06:00 01/08/24 06:00
Intake and Output
01/07/24 01/08/24 01/09/24
06:59 06:59 06:59
Intake Total 240 / 240
Output Total 400 / 400
Balance -400 / -400 240 / 240
SaO2 89
Physical Exam
General: Comfortable and Other (NAD)
HEENT: Normocephalic, Anicteric and Moist Mucous Membranes
Cardiovascular: S1-S2 and Regular Rhythm
Respiratory: Clear and Non-Labored Respirations
GI: Soft, Non Distended and Non Tender
Neurology: Awake, Alert, Oriented and No Motor Deficits
Skin: Warm, Dry and Good Color
Labs/Micro/Reports
Lab Data
01/08/24 04:24
01/08/24 04:24
[2024-01-08] MEDS: ASPIR LOW (ENTERIC COATED) 81 MG PO (07:30)
[2024-01-08] MEDS: PLAVIX 75 MG PO (07:30)
--- NOTE | 2024-01-08 07:33 | W.PN.HOSP.TC ---
Today's Communication/Plan
-
Await SALLIE
Assessment / Plan
Assessment / Plan
Gen-AAOx3, NAD
HEENT-NC, AT, anicteric, clear oral mm
Neck-supple
CV-reg, no M, +S1/S2
Lungs-clear B/L
Abd-soft, NT, ND
Ext-no edema
Musculoskeletal-no cyanosis, clubbing
Skin-warm and dry
Neuro-grossly non-focal
Psych-calm, cooperative
Acute stroke -presentation with left facial droop, dysarthria and word finding difficulties. Symptoms started at 3 AM. Tenecteplase administered in the ER.
CT head without contrast negative for acute disease.
CTA head/neck without large vessel occlusion, stenosis or dissection.
Patient on no medications prior to admission. Was told his blood pressure, cholesterol numbers were elevated by PCP in the past. Prediabetes. Does not regularly check blood pressure at home.
LDL 149, HDL 58, total cholesterol 231, triglycerides 121.
SALLIE this morning, 2-week rhythm monitor on discharge. Eventual Linq placement if negative according to cardiology.
Aspirin and Plavix to start today per neurology.
Lipitor 80 mg daily.
Essential hypertension -patient denies history. Not on blood pressure meds at home. Encouraged patient to start checking blood pressures at home and follow-up closely with PCP. Admission blood pressure 161/81, 118/74 this morning. Has not
received any blood pressure meds in the hospital.
Full code
Dispo -possible discharge later today if stable. Will discuss with other providers. Close outpatient follow-up.
Anticipated Discharge: Today
Subjective/Interval History
-
Date of Service: January 08, 2024
Patient seen and examined. No complaints.
Objective Data
-
Labs:
Laboratory Results
01/08/24
04:24
WBC 4.7 L
Hgb 14.1
Hct 40.7
Plt Count 200
Sodium 140
Potassium 3.8
Chloride 102
Carbon Dioxide 26
BUN 17
Creatinine 0.8
Glucose 104 H
Calcium 9.1
Vital Signs:
Vital Signs
Temp Pulse Resp BP Pulse Ox
98.6 F 67 18 118/74 89
01/08/24 03:45 01/08/24 06:00 01/08/24 04:33 01/08/24 06:00 01/08/24 06:00
I&O
01/07/24 01/08/24 01/09/24
06:59 06:59 06:59
Intake Total 240 / 240
Output Total 400 / 400
Balance -400 / -400 240 / 240
Review of Systems
-
History Source: Patient
All other systems: Reviewed and negative
--- NOTE | 2024-01-08 07:43 | PTCARENOTE ---
pt received from previous rn- aox3, nsr on monitor, room air. no complaints at this time. nih 0. pt oob to bathroom. educated on plan of care- verbalized understanding. call ruelas within reach, all safety precautions in place.
--- NOTE | 2024-01-08 07:52 | W.PN.NEURO.1 ---
Today's Communication / Plan
-
Appreciate cardiology consult due to need for TTE/SALLIE/implantable property management coordinator
Started aspirin 81 mg and clopidogrel 75 mg, then at day 21, aspirin alone
Started atorvastatin 80 mg due to LDL elevation
6 weeks after onset of symptoms, patient will require hypercoagulable evaluation especially in light of the patient's father's early myocardial infarction
Neuro Assessment/Plan
Assessment
Abrupt onset of left facial weakness and difficulty with speech as well as apraxia of right hand use
CT perfusion study of the head is suggestive of an acute right frontal ischemic stroke
MRI of brain demonstrates acute ischemic stroke in the right frontal lobe
Plan
Appreciate cardiology consult due to need for TTE/SALLIE/implantable property management coordinator
Started aspirin 81 mg and clopidogrel 75 mg, then at day 21, aspirin alone
Started atorvastatin 80 mg due to LDL elevation
6 weeks after onset of symptoms, patient will require hypercoagulable evaluation especially in light of the patient's father's early myocardial infarction
Provide medical educational materials
Goal of normotension
Goal of normoglycemia
DVT prophylaxis
Will follow peripherally
Subjective/Objective
Subjective Data
Date of Service: January 08, 2024
Objective Data
Vital Signs
Temp Pulse Resp BP Pulse Ox
37.0 C 67 18 118/74 95
01/08/24 03:45 01/08/24 06:00 01/08/24 04:33 01/08/24 06:00 01/08/24 07:44
Lab Results
01/08/24 04:24
01/08/24 04:24
PT Cancelled 01/07/24 06:00
INR Cancelled 01/07/24 06:00
APTT Cancelled 01/07/24 06:00
Sodium 140 mmol/L (135-145) 01/08/24 04:24
Potassium 3.8 mmol/L (3.5-5.1) 01/08/24 04:24
BUN 17 mg/dl (9-20) 01/08/24 04:24
Glucose 104 mg/dl (70-99) H 01/08/24 04:24
Calcium 9.1 mg/dl (8.4-10.2) 01/08/24 04:24
LDL Cholesterol, Calc Cancelled 01/07/24 06:00
Patient Allergies
No Known Allergies Allergy (Unverified 01/07/24 04:16)
Past History
Past History
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
ED Past Surgical History: None
Social History
Tobacco: Non-smoker
Alcohol: None
Drug: None
Personal:
Living: with family
Employment: Employed
Family History
Family History: Hypertension (Both mother and father) and CAD (Father)
Medications
-
Medications:
Generic Name Dose Route Start Last Admin
Trade Name Freq PRN Reason Stop Dose Admin
Acetaminophen 650 mg 01/07/24 05:33
Acetaminophen 325 Mg Tablet PO 02/04/24 05:32
Q4HPRN PRN
MALONEY, mild pain, or temp >100.4F
Aspirin 81 mg 01/08/24 08:00 01/08/24 07:30
Aspirin 81 Mg (Enteric Coated) Tablet PO 02/05/24 07:59 81 mg
DAILY SAWYER Administration
Atorvastatin Calcium 80 mg 01/07/24 18:00 01/07/24 18:09
Atorvastatin (Lipitor) 80 Mg Tablet PO 02/04/24 17:59 80 mg
QPM SAWYER Administration
Clopidogrel Bisulfate 75 mg 01/08/24 08:00 01/08/24 07:30
Clopidogrel 75 Mg Tablet PO 01/28/24 08:01 75 mg
DAILY SAWYER Administration
Hydralazine HCl 5 mg 01/07/24 05:33
Hydralazine 20 Mg/Ml Vial IV 02/04/24 05:32
Q4HPRN PRN
BP > 180/105 mmHg
Sodium Chloride 0 flush 01/07/24 06:00
Sodium Chloride 0.9% (Flush) Syringe IV 02/04/24 05:59
PER PROTOCOL SAWYER
--- NOTE | 2024-01-08 08:48 | PTCARENOTE ---
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
--- NOTE | 2024-01-08 09:33 | W.PN.CARDCBS ---
Today's Communication / Plan
-
SALLIE with eccentric shunt, no LA appendage clot
2 week monitor, then Linq if no afib
will schedule cardiology follow up
Impression / Plan
-
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
Assessment:
Presentation with facial droop, slurred speech
acute CVA s/p TNK 01/07/24
HTN
HLD
meniscus surgery
FH of CAD
SALLIE 01/08/24: LVEF 55%, no LA appendage clot. +small shunt present, ?likely eccentric PFO
Plan:
MRI with acute/subacute CVA in frontal lobe
SALLIE with shunt, eccentric PFO
Proceed with 2 week monitor then possible Linq
Cont ASA/plavix and risk factor modification
Cont Atorvastatin
will need cardiology followup after Monitor
Progress Note - Geosciences Associate Professor
Subjective
Date of Service: January 08, 2024
no new neurologic symptoms
Objective
Labs:
01/08/24 04:24
01/08/24 04:24
Labs
Hgb 14.1 g/dL (13.0-18.0) 01/08/24 04:24
Hct 40.7 % (39.0-52.0) 01/08/24 04:24
Plt Count 200 10^3/uL (130-400) 01/08/24 04:24
PT Cancelled 01/07/24 06:00
INR Cancelled 01/07/24 06:00
APTT Cancelled 01/07/24 06:00
Sodium 140 mmol/L (135-145) 01/08/24 04:24
Potassium 3.8 mmol/L (3.5-5.1) 01/08/24 04:24
BUN 17 mg/dl (9-20) 01/08/24 04:24
Creatinine 0.8 mg/dL (0.7-1.3) 01/08/24 04:24
Glucose 104 mg/dl (70-99) H 01/08/24 04:24
Troponins
01/07/24
03:52
Troponin I < 0.012
Vital Signs and I&O:
Vital Signs
Temp Pulse Resp BP Pulse Ox
98.6 F 72 18 114/86 92
01/08/24 03:45 01/08/24 08:38 01/08/24 04:33 01/08/24 08:38 01/08/24 08:00
Vital Signs
Temp Pulse Resp BP Pulse Ox
98.6 F 72 18 114/86 92
01/08/24 03:45 01/08/24 08:38 01/08/24 04:33 01/08/24 08:38 01/08/24 08:00
Intake & Output
01/06/24 01/07/24 01/08/24 01/09/24
06:59 06:59 06:59 06:59
Intake Total 240 / 240
Output Total 400 / 400
Balance -400 / -400 240 / 240
Physical Exam
Physical Exam
GEN: No distress, awake, Ox3
HEENT: supple, anicteric, mmm
LUNGS: CTA, no wheezes/rales
CV: Reg, S1/S2, 1/6 syst LSB, no gallop
ABD: soft, BS+, NT/ND
EXT: No edema
NEURO: Gross non-focal
SKIN: No rash
--- NOTE | 2024-01-08 10:19 | CM ---
Addendum entered by Reyna Cordero 01/08/24 11:46:
Patient seen at bedside. Patient for discharge and no needs anticipated at this time. Patient indicated that he has not signed up for Medicare at this time. CM will continue to follow for discharge planning needs.
Original Note:
Patient out of ICU room to testing. Prior assessment was for patient to return home with family supports.
CM will continue to follow for discharge planning needs.
Plan; home with no needs; watch for any VN needs.
--- NOTE | 2024-01-08 11:10 | PTCARENOTE ---
pt back from laboratory sampler at 1015- vss as charted. assessment unchanged.
--- NOTE | 2024-01-08 11:33 | W.DS.TRANS ---
DC Summary - Staff Registered Nurse
-
Discharge Instructions:
Discharge Diagnosis/Procedures Acute stroke
Diet Low Cholesterol,Low Fat
Activity As tolerated
Driving Restrictions As prior to admission
Bathing Restrictions None
Others Tests You will be sent home wearing a 2 week cardiac
monitor which will need to be returned to the
Cardiology office on January 22. Office is
located in [address] in the [facility] which is
located behind the hospital
Instructions:
Stand-Alone Forms:
Changes to Home Medications: No
Discharge Medications:
DC Medications w/original date entered in [facility]
aspirin 81 mg tablet,delayed release 81 mg PO DAILY #0 tabs 01/08/24
atorvastatin 80 mg tablet 80 mg PO QPM #30 tabs 01/08/24
clopidogrel 75 mg tablet 75 mg PO DAILY #20 tabs 01/08/24
Home Medication Changes
Pending Results: No
--- NOTE | 2024-01-08 11:34 | PTOTSP ---
Patient independent with all mobility including ambulation and stair climbing. No skilled PT needs, will sign off.
--- NOTE | 2024-01-08 11:36 | PTOTSP ---
pt currently demonstrates ability to complete simple ADLs, functional transfers, ambulation with no assistance. no acute OT needs identified at this time, will sign off.
--- NOTE | 2024-01-08 13:38 | PTCARENOTE ---
ivs removed, dressings applied. cardiac services in to put tele monitor for d/c. at bedside, discharge instructions and education provided to pt and - both able to use teach back and verbalized understanding. wheelchaired down by pct.
--- NOTE | 2024-01-08 13:59 | W.PN.INTV ---
Today's Communication / Plan
Recommendations
*D/C Home
Assessment
-
ASSESSMENT:
63-year-old Male with no significant PMHx or PSHx, presenting to the ED yesterday morning () With LEFT-Facial Paresis, LEFT-Upper Extremity Weakness/Numbness & Abnormal Speech, who was found to have Multiple Sub-Acute Ischemic
changes/Infarcts over the Sourav-Medial Aspect of the Right-Frontal Lobe along with multiple associated White-Matter Hyper-Intensities, suspicious for Small-Vessel Brain Disease, on Brain MRI�who was subsequently transferred to the ICU for close
patient monitoring after TNK Administration.
PLAN:
NEURO:
RASS Level of Zero
WO Sedation
Pain Control Analgesia / With PRN's
RESPI:
No Previous Hx of Lung/Pulmonary Disease
Continue to follow Aspiration Precautions
CARDIO-VASC:
Continue to Follow Cardiology Recommendations
Continue Cktn-Vnxx-BST Therapy (ASA 81mg + Clopidogrel 75mg QD)
Continue High-Dose Atorvastatin 80mg QD (Plaque Stabilizing Effect in the setting of Unknown CVA Etiology/Possible Thrombotic Etiology)
F/U With Cardiology Out-pt for further appropriate Management and Control of Underlying CVD/Stroke Predisposing Factors
Continue to Follow Post-SALLIE Findings Recommendations inn the setting of recently DIAG PFO
24hr Holter Monitoring for possible Cardio Embolic Stroke Etiology Eval
LE US for Evaluation of Possible VTE Stroke Etiology in the setiing of R-L Abnormal Shunt (In he setting of recently DIAG Patent-PFO)
Possible Brain/Neck MRA for further and appropriate characterization of Posterior Circulation in the setting of possible Posterior Circulation intrinsic Vessels Disease/Occlusion
Further Evaluation of possible Underlying 2ry Causes of HTN & in the setting of previous initial presentation of HTN Urgency/Emergency and Concenctric LVF Hyperthrophy W. Preserved EF on ECHO
GI:
Continue Regular-Diet
GI Ppx (In the Setting of Prev. GERD Hx and/or Previous PPI Use at Home)
RENAL/:
Continue to Follow Urine Output
Cont. to follow Creat
Cont. to follow In/Outs
Continue IV Fluid Hydration & Supportive-Care
ID:
No ABX Ppx at this time
Cont. to Monitor for Possible Signs of Infection
HEMME/ONC:
Continue to Ambulate / OOB
Follow Cardio Recommendations / Vascular SUrgery Recommendations for appropriate management of DVT PPx in the setting of recently DIAG Patent-PFO and CVA Events related to Current Admission
ENDOCRINE:
Continue to Closely Monitor Glucose Level / HgA1c and Lipid-Panel Out-Pt
F/U Out-pt for further management/Optimization
Subjective Dataa
Subjective Data
Date of Service:
Date of Service: January 08, 2024
Pt was seen and evaluated at bedside this morning with attending physician and ICU Team, during morning rounds.
No Acute O/N Event s Reported
Doing well / No Complains
Pt was noted to be in NAD / AAOx3 this morning at the time of evaluation
Hemodynamically Stable
Tolerating Regular Diet
Walking and Out of Bed
NO apparent Sensory Nor Motor Deficit or Abnormalities noted on Exam
CN's II through XII Intact
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
Review of Systems
Genitourinary: Other (Pertinent +/- as prev. mentioned on Subjective Data Section)
Objective Data
Data Reviewed
Vital Signs / I&O / Oxygen:
Vital Signs
Temp Pulse Resp BP Pulse Ox
36.5 C 65 18 113/69 97
01/08/24 11:34 01/08/24 11:56 01/08/24 04:33 01/08/24 11:56 01/08/24 11:10
Intake and Output
01/07/24 01/08/24 01/09/24
06:59 06:59 06:59
Intake Total 240 / 240
Output Total 400 / 400
Balance -400 / -400 240 / 240
SaO2 97
Physical Exam
General: Comfortable and Other (NAD)
HEENT: Normocephalic, Anicteric and Moist Mucous Membranes
Cardiovascular: S1-S2 and Regular Rhythm
Respiratory: Clear and Non-Labored Respirations
GI: Soft, Non Distended and Non Tender
Neurology: Awake, Alert, Oriented and No Motor Deficits
Skin: Warm, Dry and Good Color
Labs/Micro/Reports
Lab Data
01/08/24 04:24
01/08/24 04:24
[2024-01-09 20:43] LABS: Hepatitis C Antibody Negative (Negative)
== END 2024-01-08 13:40 | disposition home or self-care (01) | DRG 62 ==
LOC: ICU 04:58
PROVIDERS: Internal Medicine Cardiovascular Disease; Nurse Practitioner Primary Care; ADMITTING PHYSICIAN Internal Medicine; ATTENDING PHYSICIAN Hospitalist; CONSULT PHYSICIAN Internal Medicine; CONSULT PHYSICIAN Internal Medicine Cardiovascular Disease; CONSULT PHYSICIAN Psychiatry & Neurology Neurology; EMERGENCY PHYSICIAN Emergency Medicine; FAMILY PHYSICIAN Internal Medicine
PROC: 3E03317 Introduction of Other Thrombolytic into Peripheral Vein, Percutaneous Approach (ICD-10-PCS; 2024-01-07)
PROC: B24BZZ4 Ultrasonography of Heart with Aorta, Transesophageal (ICD-10-PCS; 2024-01-07)
DX: I63.89 Other cerebral infarction (principal); Q21.12 Patent foramen ovale; E78.5 Hyperlipidemia, unspecified; K21.9 Gastro-esophageal reflux disease without esophagitis; I67.89 Other cerebrovascular disease; I10 Essential (primary) hypertension; R29.703 NIHSS score 3; R29.810 Facial weakness; R47.81 Slurred speech; R48.2 Apraxia; R29.700 NIHSS score 0; Z96.659 Presence of unspecified artificial knee joint; Z82.49 Family history of ischemic heart disease and other diseases of the circulatory system
CPT/HCPCS: 0042T; 70450; 70496; 70498; 70551; 71045; 80048; 80053; 80061; 82962; 83036; 83735; 84484; 85025; 85027; 85610; 85652; 85730; 86803; 92523; 92610; 93005; 93306; 93312; 93320; 93325; 97116; 97161; 97165; 99291; J3101; Q9967

== ENCOUNTER → 2024-03-16 12:49 | Outpatient (REF) | payer BC, SELFPAY | LOC: DHSLP 12:49 | PROVIDERS: ATTENDING PHYSICIAN Internal Medicine; FAMILY PHYSICIAN Internal Medicine | DX: G47.33 Obstructive sleep apnea (adult) (pediatric) (principal) | CPT/HCPCS: 95800 ==

== ENCOUNTER 2024-03-31 06:38 | Day surgery (SDC) | payer BC, SELFPAY ==
[2024-03-30 08:32] VITALS: BMI 28.2
--- NOTE | 2024-03-31 10:18 | ITS.CL.IMPLP ---
Addendum entered and electronically signed by Andrea Adan MD 04/01/24 10:06:
Date of procedure was March 31, 2024
Original Note:
Drafter Electronic - Implant Loop
Implant Loop
Procedure Report:
ILR
Date of Procedure: April 01, 2024
Patient : 1960
Procedure: Insertable Loop Recorder Implant.
Indication: Cryptogenic stroke
Implant: LInq: Embark[employer]; Model# LN Q22; Serial# [id number]
Technique: The patient was prepped and draped in the usual fashion.��Local anesthetic was applied to the left��prepectoral subcutaneous tissue. A subcutaneous pocket was created with blunt dissection. Hemostasis was excellent. The device was placed
in the pocket. The skin was closed with steri-strips. The estimated blood��loss was minimal. There were no complications.
Final Programming: FVT 231 30/40 beats
����������������������������������VT 176 16 beats
����������������������������������Asystole 3 sec
����������������������������������Fran 30 bpm for 4 beats
����������������������������������AF On AF only.
Conclusion: Uncomplicated insertable loop implant.
Recommendation: Routine ILR care.
cc: Andrea Adan
== END 2024-03-31 09:00 | disposition home or self-care (01) ==
LOC: CATH 06:38
PROVIDERS: ATTENDING PHYSICIAN Internal Medicine Cardiovascular Disease; FAMILY PHYSICIAN Internal Medicine; OTHER PHYSICIAN Internal Medicine Interventional Cardiology
DX: Z09 Encounter for follow-up examination after completed treatment for conditions other than malignant neoplasm (principal); R27.0 Ataxia, unspecified; R47.1 Dysarthria and anarthria; R20.2 Paresthesia of skin; I10 Essential (primary) hypertension; E78.5 Hyperlipidemia, unspecified; G47.00 Insomnia, unspecified; M19.90 Unspecified osteoarthritis, unspecified site; G47.33 Obstructive sleep apnea (adult) (pediatric); Z86.73 Personal history of transient ischemic attack (TIA), and cerebral infarction without residual deficits; Z79.82 Long term (current) use of aspirin; Z79.899 Other long term (current) drug therapy
CPT/HCPCS: 33285; 93005; C1764

== ENCOUNTER → 2024-05-18 12:13 | Outpatient (REF) | payer BC, SELFPAY | LOC: HWRAD 12:13 | PROVIDERS: ATTENDING PHYSICIAN Nurse Practitioner Family; FAMILY PHYSICIAN Internal Medicine | DX: J30.2 Other seasonal allergic rhinitis (principal); R05.3 Chronic cough | CPT/HCPCS: 71046 ==

== ENCOUNTER 2024-06-03 06:22 | Day surgery (SDC) | payer BC, SELFPAY ==
[2024-05-26 12:43] VITALS: BMI 28.8
[2024-05-26 13:23] LABS: % Basophils 0.4 % (0-2); % Eosinophils 2.3 % (0-6); % Immature Granulocytes 0.2 % (0-0.5); % Lymphocytes 31.9 % (20.5-51.1); % Monocytes 8.3 % (1.7-9.3); % Neutrophils 56.9 % (42.2-75.2); Absolute Eosinophils 0.1 10^3/uL (0-0.7); Absolute Lymphocytes 1.7 10^3/uL (1.2-3.4); Absolute Monocytes 0.4 10^3/uL (0.1-0.6); Hematocrit 40.6 % (39.0-52.0); Hemoglobin 13.8 g/dL (13.0-18.0); Mean Corpuscular Hgb 30.4 pg (27.0-31.0); Mean Corpuscular Volume 89.4 fL (80.0-94.0); Mean Platelet Volume 9.1 fL (7.4-10.4); Nucleated Red Blood Cells % 0 % (-); Platelet Count 194 10^3/uL (130-400); Red Blood Cell Count 4.54 10^6/uL (4.70-6.10); Red Cell Dist. Width 12.6 % (11.5-14.5); White Blood Cell Count 5.2 10^3/uL (4.8-10.8)
[2024-05-26 13:36] LABS: ALT (SGPT) 42 U/L (0-50); AST (SGOT) 45 U/L (17-59); Albumin 4.5 g/dl (3.5-5.0); Alkaline Phosphatase 54 U/L (38-126); Blood Urea Nitrogen 20 mg/dl (9-20); Calcium 9.4 mg/dl (8.4-10.2); Carbon Dioxide 29 mmol/L (22-30); Chloride 102 mmol/L (98-107); Estimated Creatinine Clearance 92 ml/min; Glucose 91 mg/dl (70-99); Potassium 4.2 mmol/L (3.5-5.1); Sodium 143 mmol/L (135-145); Total Bilirubin 0.6 mg/dl (0.2-1.3); Total Protein 6.6 g/dl (6.3-8.2); eGFR > 60.00
[2024-06-03] VITALS (8 sets, daily range): BP systolic 107–122; BP diastolic 72–80
[2024-06-03] MEDS: PLAVIX 600 MG PO (07:16)
[2024-06-03 08:42] LABS: ACT-LR - POC 266 Seconds (116-155)
[2024-06-03 08:50] LABS: ACT-LR - POC 337 Seconds (116-155)
[2024-06-03 09:09] LABS: ACT-LR - POC 284 Seconds (116-155)
[2024-06-03 09:36] LABS: ACT-LR - POC 306 Seconds (116-155)
--- NOTE | 2024-06-03 13:37 | ITS.CL.PN ---
Freelance Patternmaker - Procedure Note
Procedure
Procedure Note:
RIGHT HEART CATHETERIZATION (WITH SHUNT RUN) AND PATENT FORAMEN OVALE (PFO) CLOSURE
Date of procedure: June 03, 2024
Pre-op diagnosis: Cryptogenic stroke, presence of PFO
Post-op diagnosis: Cryptogenic stroke, presence of PFO
Indication: Cryptogenic stroke
Procedure performed: Percutaneous PFO closure with 30 mm Amplatzer Talisman PFO Occluder (REF #[id number] ; LOT #[id number])
hhas: Treva Nur MD, [facility], [facility]
Type of echocardiography: Intracardiac Echocardiography (ICE)
Access:
1. Two 9 Portuguese sheaths (9Fr x 11cm and 9Fr x 25cm) in the right common femoral vein using a micropuncture kit under US guidance.
Ultrasound was utilized for vascular access. The right common femoral vein was visualized under ultrasound, and the vessel was patent. An image was stored permanently in the patient's medical record. Under direct ultrasound guidance, 2 separate 9
Portuguese sheath were inserted into the right common femoral vein about 1 to 2 cm apart using a micropuncture kit through a modified Seldinger technique.
RIGHT HEART CATHETERIZATION
Hemodynamics (mmHg):
RA (m) : 9
RV (s/d,m) : 30/5, 12
PA (s/d, m) : 31/12, 20
PCWP (m) : 12
PA saturation: 75.5% on 2 L of oxygen via nasal cannula
AO saturation non-invasively 97% on 2 L of oxygen via nasal cannula
RA saturation: 71.2% on 2 L of oxygen via nasal cannula
RV saturation: 74.8% on 2 L of oxygen via nasal cannula
LPA Saturation: 71.2% on 2 L of oxygen via nasal cannula
High SVC Saturation: 75.0% on 2 L of oxygen via nasal cannula
Low SVC Saturation: 74.0% on 2 L of oxygen via nasal cannula
IVC Saturation: 76.6% on 2 L of oxygen via nasal cannula
JOSE saturation 99.0% on 2 L of oxygen via nasal cannula
Cardiac Output: 5.65 L/min by Otilia calculation
Cardiac Index : 2.79 L/min/m-2 by Otilia calculation
Procedure:
The patient was brought to the interventional cardiology suite in fasting state. The patient was given Plavix 600mg pre-procedurally and Ancef IV was given by Anesthesia. Bilateral femoral areas were prepped and draped in standard sterile fashion.
The right femoral vein was accessed about 1cm apart twice using a modified Seldinger technique and two 9 Portuguese sheaths were placed 1 is below the other (short 9 Portuguese by 11 cm on the top and a long 9 Portuguese by 25 cm at the bottom. Full dose IV
heparin was given to achieve an ACT greater than 300 seconds, which was maintained throughout the procedure. After confirming that there was no significant step up on the shunt run by performing a right heart catheterization, ICE catheter was
advanced through the 9 Portuguese by 25 cm venous sheath and basic images were obtained and saved including the view of the interatrial septum and the PFO seen by color Doppler. Using ICE and fluoroscopy guidance, a 0.035' J wire was advanced from the
right femoral vein and up into the right atrium and a 6Fr. multipurpose catheter was advanced over this wire. The J-wire was removed and catheter was flushed. A Bee wire was advanced through the multipurpose catheter and after multiple passes we
successfully crossed the PFO into the left atrium. The multipurpose catheter was advanced over the wire into the left upper pulmonary vein. The wire was removed and the catheter was flushed. A 0.035 superstiff Amplatz wire was advanced through the
multipurpose catheter and parked into the left upper pulmonary vein.
The multipurpose catheter was removed. The 9 Portuguese sheath was removed. Based on the anatomy (interatrial septal aneurysm) and a 9 mm septal thickness, we decided to move forward with implantation of a 30 mm Amplatzer Talisman PFO Occluder device.
On the back table, we turned our attention to prepping the closure device. A 30 mm Amplatzer Talisman PFO Occluder device was placed in a bowl of heparinized saline. The Tuohy-Anel valve and its extension were appropriately flushed. The device was
submerged in saline and the valve and extension were slowly flush with water while the occlusion device was retracted into it, ensuring that the device was completely de-aired.
The 9 Portuguese Talisman delivery sheath was advanced over the Super Stiff Amplat'sz wire into the IVC. The dilator was retracted at this point to completely de-aired the system. The sheath itself was then advanced over the Super Stiff Amplatz wire
into the left atrium and the Super Stiff wire was taken out. The sheath was de-aired and flushed. We connected the sheath with the closure device assembly with a wet to wet connection. The occluder was advanced through the sheath and into the left
atrium. Left atrial disc was deployed. The entire assembly was retracted until the left atrial disc was firmly against the interatrial wall under fluoroscopy and ICE guidance. The right atrial disc was deployed under tension and allowed to settle on
the right atrial side of the septum.
Echocardiographic images were obtained in multiple views showing good placement of the occlusion device. The interatrial septum is clearly visible between the 2 discs. The discs do not appear to be interfering with the aorta. After performing
appropriate pushing and pulling of the device to ensure good placement ([place] wiggle), the device was released. Once again, echocardiography confirmed good placement. ICE catheter was then taken out.
The Talisman sheath and the 9Fr x 25mm sheath was removed from the right femoral vein and a kyikrr-ap-gbpuu suture was placed over access site with good hemostasis. Additional manual pressure was held for 10 minutes. The patient tolerated the
procedure well with no acute complications. She remained hemodynamically stable throughout the procedure.
Fluoro Time: 14.7 min, Dose: 131.73 mGy, DAP : 18.33 gy.cm2
Conclusions:
1. Successful ICE guided percutaneous PFO closure with 30 mm Amplatzer Talisman PFO Occluder (REF #[id number] ; LOT #[id number]) with no acute complications.
Recommendations:
1. Routine care post PFO closure.
2. Limited weight bearing for 2 days.
3. DAPT with aspirin and clopidogrel for 6 months, followed by aspirin indefinitely.
4. Limited echocardiogram prior to discharge.
5. Removal of hsrdus-td-wrebo stitch prior to discharge.
6. Repeat echocardiogram in 1 month with outpatient cardiology follow up.
7. Endocarditis prophylaxis for the first 6 months until the device endothelialized this.
Treva Nur MD, FACC, [facility]
--- NOTE | 2024-06-03 14:16 | W.PN.UPDATE ---
Update Note
Progress Note Update
Patient's ILR site was inspected from March. Patient 1 week ago noticed that the device had shifted in the device tract. The injection site was inspected and was clean dry and intact although I suspect he has an impending device erosion
over the next 3 to 4 weeks. There is no erythema or purulent drainage. The skin is intact and not open. Given his recent Amplatzer closure device I would be reticent to allow the device to erode and increase the chance for local infection. As
such would schedule in the next 2 to 4 weeks was concerned that an ILR explant which can be done with conscious sedation. Patient is agreeable. He has not had A-fib on over 2 months of continuous monitoring and is status post Amplatzer closure
today.
--- NOTE | 2024-06-03 14:37 | W.PN.UPDATE ---
Update Note
Progress Note Update
64 yo WM s/p PFO closure (same day). He denies cp, sob, smith diet, voiding, amb w/o dizziness, EKG SB, R fem site c/d/i no HT. He had f/u echo after procedure, results pending. He will return for another echo in 1 mo with f/u apt with Dr. Christianson. He
will be on DAPT ASA/Plavix for 1 mo. He will return in 2 weeks for ILR removal with Dr. Adan. He is for d/c home after 3pm.
== END 2024-06-03 15:05 | disposition home or self-care (01) ==
LOC: CATH 06:22
PROVIDERS: ATTENDING PHYSICIAN Internal Medicine Interventional Cardiology; FAMILY PHYSICIAN Internal Medicine
DX: Q21.12 Patent foramen ovale (principal); Z86.73 Personal history of transient ischemic attack (TIA), and cerebral infarction without residual deficits; I10 Essential (primary) hypertension; G47.33 Obstructive sleep apnea (adult) (pediatric); E78.5 Hyperlipidemia, unspecified; Z79.82 Long term (current) use of aspirin; Z79.899 Other long term (current) drug therapy; M19.90 Unspecified osteoarthritis, unspecified site; G47.00 Insomnia, unspecified
CPT/HCPCS: 93580; 36415; 80053; 85025; 85347; 93005; 93307; C1759; C1769; C1817; C1892; C1894

== ENCOUNTER 2024-06-16 12:27 | Day surgery (SDC) | payer BC, SELFPAY ==
[2024-06-16] VITALS (7 sets, daily range): BP systolic 98–150; BP diastolic 71–95; BMI 28.7
--- NOTE | 2024-06-16 15:07 | ITS.CL.IMPLP ---
Offal Roller - Implant Loop
Implant Loop
Procedure Report:
ILR explant
Date of Procedure: June 17, 2024
Patient : 1960
Procedure: Insertable Loop Recorder Implant. (Reveal)
Indication: Threatening erosion of the ILR
Implant: Reveal [id number]: [employer]er [employer]; Model# [id number]
Technique: The patient was prepped and draped in the usual fashion.� The device remained in the pocket and there was no signs of device erosion. There was a capsule and skin covering over the ILR although the patient reported that it had shifted in
the pocket over the last week. Given recent PFO device placement we electively decided to remove the device as stated provided greater than 2 months of continuous monitoring without atrial fibrillation to minimize potential infection risk.
�Conscious sedation was administered and local anesthetic was applied to the left��prepectoral subcutaneous tissue. The chronic incision was opened with a stab incision and the capsule was freed from the ILR device. With gentle pressure we could
express the device from the pocket and remove it from the field. There was no purulent drainage. The wound edges appeared healthy without signs of infection.. We closed the pocket with one 3.0 Vicryl suture and Steri-Strips were applied.. The
skin was closed with steri-strips. The estimated blood��loss was minimal. There were no complications.
Conclusion: Uncomplicated insertable loop explant
Recommendation: Routine wound care with follow-up in her office
cc: Dr. Treva Nur
== END 2024-06-16 16:00 | disposition home or self-care (01) ==
LOC: CATH 12:27
PROVIDERS: ATTENDING PHYSICIAN Internal Medicine Cardiovascular Disease; FAMILY PHYSICIAN Internal Medicine; OTHER PHYSICIAN Internal Medicine Interventional Cardiology
DX: Z09 Encounter for follow-up examination after completed treatment for conditions other than malignant neoplasm (principal); Q21.12 Patent foramen ovale; I10 Essential (primary) hypertension; E78.5 Hyperlipidemia, unspecified; I34.0 Nonrheumatic mitral (valve) insufficiency; Z79.82 Long term (current) use of aspirin; Z79.02 Long term (current) use of antithrombotics/antiplatelets
CPT/HCPCS: 33286

== ENCOUNTER → 2024-07-07 09:02 | Outpatient (REF) | payer BC, SELFPAY | LOC: RCS 09:02 | PROVIDERS: ATTENDING PHYSICIAN Internal Medicine Interventional Cardiology; FAMILY PHYSICIAN Internal Medicine | DX: Q21.12 Patent foramen ovale (principal); Z86.73 Personal history of transient ischemic attack (TIA), and cerebral infarction without residual deficits; I10 Essential (primary) hypertension | CPT/HCPCS: 93307 ==

== ENCOUNTER → 2024-11-16 08:29 | Outpatient (REF) | payer BC, SELFPAY | LOC: RCS 08:29 | PROVIDERS: ATTENDING PHYSICIAN Internal Medicine Interventional Cardiology; FAMILY PHYSICIAN Internal Medicine | DX: E78.5 Hyperlipidemia, unspecified (principal) | CPT/HCPCS: 93306 ==